=== PATIENT | female | born 1945 | race Caucasian/White ===

== ENCOUNTER 2017-08-23 07:08 | Emergency (ER) | payer MEDICARE, OTHER ==
[~2017-08-23] VITALS: Ht 160 cm; Wt 76.0 kg
[~2017-08-23 07:08] MED LIST: ATOR10 PO; CALC500 PO; CIPR500T4 PO; CYCL5TAB PO; MOBI15TA OR; NEUR100C PO; PREM0.622 PO
[2017-08-23 07:21] VITALS: BP 151/77; PULSE 118; RESP 18; TEMP 99.2; O2SAT 95
[2017-08-23] MEDS ORDERED: DULO1CAP2 PO (07:35)
[2017-08-23] MEDS ORDERED: MOBI15TA PO (07:35)
[2017-08-23] MEDS ORDERED: CYCL10TA PO (07:35)
--- NOTE | 2017-08-23 07:57 | PD ---
HPI Chief Complaint: Cold / Flu Symptoms Time Seen by Provider: 07:52 Travel History International Travel<30 days: No Contact w/Intl Traveler<30days: No Traveled to known affect area: No History of Present Illness HPI 72-year-old female patient presents to the ER today for 1 day history of nausea , vomiting, cough, cold symptoms, body aches, chills. She states that her significant other also has similar symptoms for several days. She denies any diarrhea, abdominal pain, chest pains, shortness of breath, or other symptoms. Modifying Factors: None Associated Signs & Symptoms: Nausea, vomiting, flulike symptoms Risk Factors: Sick contact PFSH Past Medical History Arthritis: Yes Asthma: No Autoimmune Disease: No Blood Disorders: No Anxiety: Yes Depression: No Heart Rhythm Problems: No Cancer: No Cardiovascular Problems: No High Cholesterol: Yes Chemotherapy: No Chest Pain: No Congestive Heart Failure: No COPD: No Cerebrovascular Accident: No Diabetes: No Diminished Hearing: Yes (right ear deaf, left ear wears hearing aid) Endocrine: No GERD: No Glaucoma: No Genitourinary: No Headaches: No Hepatitis: No Hiatal Hernia: No Hypertension: No Immune Disorder: No Kidney Stones: No Musculoskeletal: No Neurologic: No Psychiatric: No Reproductive: No Respiratory: No Migraines: No Myocardial Infarction: No Radiation Therapy: No Renal Failure: No Seizures: No Sickle Cell Disease: No Sleep Apnea: No Thyroid Disease: No Ulcer: No Tetanus Vaccination: < 5 Years Influenza Vaccination: No ?: Not Menopausal: Yes Past Surgical History Abdominal Surgery: No AICD: No Appendectomy: Yes Arteriovenous Shunt: No Cardiac Surgery: No Cholecystectomy: No Ear Surgery: No Endocrine Surgery: No Eye Surgery: No Genitourinary Surgery: No Gynecologic Surgery: No Hysterectomy: Yes Insulin Pump: No Joint Replacement: No Oral Surgery: No Pacemaker: No Thoracic Surgery: No Tonsillectomy: Yes Other Surgery: Yes (HEMMROIDECTOMY) Social History Alcohol Use: Yes (occas. wine) Tobacco Use: No (quit in 1979 smoked cigs 1 ppd) Substance Use: No Allergies-Medications (Allergen,Severity, Reaction): Coded Allergies: iodine (Unverified Allergy, Intermediate, Nausea/Vomiting, 08/23/17) potassium iodide (Unverified Allergy, Intermediate, Nausea/Vomiting, 08/23) povidone-iodine (Unverified Allergy, Intermediate, Nausea/Vomiting, ) sodium iodide (Unverified Allergy, Intermediate, Nausea/Vomiting, 08/23/17 ) sodium iodide (Unverified Allergy, Intermediate, Nausea/Vomiting, 08/23/17 ) levofloxacin (Verified Allergy, Unknown, 08/23/17) patient states does not have allergy to this med states dont want it codeine (Unverified Adverse Reaction, Severe, N&V, 08/23/17) Reported Meds & Prescriptions Reported Meds & Active Scripts Active Reported Mobic (Meloxicam) 15 Mg Tab 15 Mg PO DAILY Duloxetine DR (Duloxetine HCl) 30 Mg Capdr 30 Mg PO BID Flexeril (Cyclobenzaprine HCl) 10 Mg Tab 10 Mg PO Q8HR Review of Systems Except as stated in HPI: all other systems reviewed are Neg Physical Exam Narrative GENERAL: Well-developed elderly white female patient currently in mild distress. Awake and oriented 3. SKIN: Focused skin assessment warm/dry. HEAD: Atraumatic. Normocephalic. EYES: Pupils equal and round. No scleral icterus. No injection or drainage. ENT: Mucosa pink and moist. Mild erythema with no exudates. No uvular edema. No uvular, palatal, or tonsillar deviation. Airway patent. NECK: Trachea midline. No JVD. Supple. CARDIOVASCULAR: Regular rate and rhythm. No murmur appreciated. RESPIRATORY: No accessory muscle use. Clear to auscultation. Breath sounds equal bilaterally. GASTROINTESTINAL: Abdomen soft, non-tender, nondistended. Hepatic and splenic margins not palpable. MUSCULOSKELETAL: No obvious deformities. No clubbing. No cyanosis. No edema. NEUROLOGICAL: Awake and alert. No obvious cranial nerve deficits. Motor grossly within normal limits. Normal speech. PSYCHIATRIC: Appropriate mood and affect; insight and judgment normal. Data Data Last Documented VS Vital Signs Date Time Temp Pulse Resp B/P (MAP) Pulse Ox O2 Delivery O2 Flow Rate FiO2 08/23/17 08:54 101 20 152/69 (96) 93 08/23/17 08:38 Room Air 08/23/17 07:21 99.2 Orders Orders Influenzae A/B Antigen (08/23/17 07:47) Electrocardiogram (08/23/17 07:52) Complete Blood Count With Diff (08/23/17 07:52) Comprehensive Metabolic Panel (08/23/17 07:52) Lipase (08/23/17 07:52) Urinalysis - C+S If Indicated (08/23/17 07:52) Chest, Single Ap (08/23/17 07:52) Sodium Chlorid 0.9% 500 Ml Inj (Ns 500 M (08/23/17 08:00) Ondansetron Inj (Zofran Inj) (08/23/17 08:00) Urine Culture (08/23/17 09:15) Ed Discharge Order (08/23/17 09:35) Labs Laboratory Tests Test 08/23/17 08:00 08/23/17 09:15 White Blood Count 5.7 TH/MM3 Red Blood Count 4.19 MIL/MM3 Hemoglobin 12.8 GM/DL Hematocrit 37.6 % Mean Corpuscular Volume 89.7 FL Mean Corpuscular Hemoglobin 30.6 PG Mean Corpuscular Hemoglobin Concent 34.2 % Red Cell Distribution Width 11.9 % Platelet Count 237 TH/MM3 Mean Platelet Volume 6.6 FL Neutrophils (%) (Auto) 79.7 % Lymphocytes (%) (Auto) 7.3 % Monocytes (%) (Auto) 8.7 % Eosinophils (%) (Auto) 0.6 % Basophils (%) (Auto) 3.7 % Neutrophils # (Auto) 4.6 TH/MM3 Lymphocytes # (Auto) 0.4 TH/MM3 Monocytes # (Auto) 0.5 TH/MM3 Eosinophils # (Auto) 0.0 TH/MM3 Basophils # (Auto) 0.2 TH/MM3 CBC Comment DIFF FINAL Differential Comment Blood Urea Nitrogen 11 MG/DL Creatinine 0.92 MG/DL Random Glucose 139 MG/DL Total Protein 7.1 GM/DL Albumin 3.5 GM/DL Calcium Level 8.6 MG/DL Alkaline Phosphatase 89 U/L Aspartate Amino Transf (AST/SGOT) 41 U/L Alanine Aminotransferase (ALT/SGPT) 31 U/L Total Bilirubin 0.4 MG/DL Sodium Level 141 MEQ/L Potassium Level 3.8 MEQ/L Chloride Level 105 MEQ/L Carbon Dioxide Level 27.2 MEQ/L Anion Gap 9 MEQ/L Estimat Glomerular Filtration Rate 60 ML/MIN Lipase 135 U/L Urine Color YELLOW Urine Turbidity CLOUDY Urine pH 6.0 Urine Specific [place] 1.014 Urine Protein NEG mg/dL Urine Glucose (UA) NEG mg/dL Urine Ketones NEG mg/dL Urine Occult Blood MOD Urine Nitrite POS Urine Bilirubin NEG Urine Leukocyte Esterase SMALL Urine RBC 0-2 /hpf Urine WBC 9-14 /hpf Urine WBC Clumps FEW Urine Squamous Epithelial Cells 0-5 /hpf Urine Bacteria MANY /hpf Microscopic Urinalysis Comment CULTURE INDICATED MDM Medical Decision Making Medical Screen Exam Complete: Yes Emergency Medical Condition: Yes Medical Record Reviewed: Yes Interpretation(s) EKG shows sinus tachycardia at a rate of 108 bpm. No signs of acute ST-T changes. Laboratory Tests Test 08/23/17 08:00 08/23/17 09:15 Mean Platelet Volume 6.6 FL (7.0-11.0) Neutrophils (%) (Auto) 79.7 % (16.0-70.0) Lymphocytes (%) (Auto) 7.3 % (9.0-44.0) Monocytes (%) (Auto) 8.7 % (0.0-8.0) Basophils (%) (Auto) 3.7 % (0.0-2.0) Lymphocytes # (Auto) 0.4 TH/MM3 (1.0-4.8) Random Glucose 139 MG/DL (74-106) Aspartate Amino Transf (AST/SGOT) 41 U/L (15-37) Estimat Glomerular Filtration Rate 60 ML/MIN (>89) Urine Turbidity CLOUDY (CLEAR) Urine Occult Blood MOD (NEG) Urine Nitrite POS (NEG) Urine Leukocyte Esterase SMALL (NEG) Urine WBC 9-14 /hpf (0-5) Urine WBC Clumps FEW (NONE) Urine Bacteria MANY /hpf (NONE) Last 24 hours Impressions Chest X-Ray 08/23/17 0752 Signed Impressions: Service Date/Time: Wednesday, August 23, 2017 08:17 - CONCLUSION: No acute disease. Indra Cerda MD Differential Diagnosis Flulike symptoms, nausea, vomiting: Influenza versus viral syndrome versus dehydration versus metabolic issues versus pneumonia versus sepsis Narrative Course Patient's apparently was confirmed to have the flu last week. At this point, even though the flu testing is negative and the ER, I would plan on giving the patient Tamiflu as treatment considering her symptoms. She may be somewhat dehydrated, is mild tachycardic in the ER on initial evaluation. IV fluids were given and her heart rate is settling down. Her blood pressure was elevated at some points in the ER but she is not having any significant chest pains or shortness of breath. EKG did not show any signs of significant changes. Chest x-ray did not show any signs of pneumonia or any other issues. Patient has been taking [id number] flu remedies including DayQuil and NyQuil and some of these have decongestants which could be exacerbating blood pressures. I have recommended that they stop taking those medications that contain any pseudoephedrine. My plan would be to give her Tamiflu, symptomatic relief with Zofran, and in addition, she has UTI on lab work and I will treat her UTI as well. Return for any worsening in symptoms as necessary. The plan has been discussed with her and she states understanding. Diagnosis Primary Impression: Viral syndrome Additional Impression: UTI (urinary tract infection) Med/Other Pt SpecificInfo: Prescription(s) given Scripts Ondansetron Odt (Zofran Odt) 4 Mg Tab 4 MG SL Q6HR Y for Nausea/Vomiting, #7 TAB 0 Refills Prov: Zachary Franks MD 08/23/17 Oseltamivir (Tamiflu) 75 Mg Cap 75 MG PO BID for Mgmt Viral Infection for 5 Days, #10 CAP 0 Refills Prov: Zachary Franks MD 08/23/17 Sulfamethoxazole-Trimethoprim (Bactrim DS) 800-160 Mg Tab 1 TAB PO BID for Infection, #14 TAB 0 Refills Prov: Zachary Franks MD 08/23/17 Disposition: 01 DISCHARGE HOME Condition: Stable Zachary Franks MD Aug 23, 2017 07:57
[2017-08-23] MEDS ORDERED: ONDANSETRON HCL 4 MG/2 ML VIAL IV PUSH ONE (08:00)
[2017-08-23] MEDS ORDERED: SODIUM CHLORID 0.9% 500 ML INJ 500 ML IV ONE (08:00)
[2017-08-23 08:07] LABS: AUTOMATED NEUTROPHIL # 4.6 TH/MM3 (1.8-7.7); BASOPHIL # 0.2 TH/MM3 (0-0.2); BASOPHIL % 3.7 % (0.0-2.0); EOSINOPHIL % 0.6 % (0.0-4.0); HEMATOCRIT 37.6 % (35.0-46.0); HEMOGLOBIN 12.8 GM/DL (11.6-15.3); LYMPH % 7.3 % (9.0-44.0); LYMPHOCYTE # 0.4 TH/MM3 (1.0-4.8); MEAN CELL VOLUME 89.7 FL (80.0-100.0); MEAN CORPUSCULAR HEMOGLOBIN 30.6 PG (27.0-34.0); MEAN CORPUSCULAR HGB CONC 34.2 % (32.0-36.0); MEAN PLATELET VOLUME 6.6 FL (7.0-11.0); MONO % 8.7 % (0.0-8.0); MONOCYTE # 0.5 TH/MM3 (0-0.9); NEUT % 79.7 % (16.0-70.0); PLATELET COUNT 237 TH/MM3 (150-450); RED BLOOD COUNT 4.19 MIL/MM3 (4.00-5.30); RED CELL DISTRIBUTION WIDTH 11.9 % (11.6-17.2); WHITE BLOOD COUNT 5.7 TH/MM3 (4.0-11.0)
[2017-08-23 08:18] LABS: CHLORIDE 105 MEQ/L (98-107); SODIUM (NA) 141 MEQ/L (136-145)
[2017-08-23 08:21] LABS: ALBUMIN 3.5 GM/DL (3.4-5.0); BICARBONATE 27.2 MEQ/L (21.0-32.0); BLOOD UREA NITROGEN 11 MG/DL (7-18); CALCIUM 8.6 MG/DL (8.5-10.1); GLUCOSE,RANDOM 139 MG/DL (74-106); LIPASE 135 U/L (73-393)
[2017-08-23 08:24] LABS: ALT (GPT) 31 U/L (10-53); AST (GOT) 41 U/L (15-37); CREATININE 0.92 MG/DL (0.50-1.00); GLOMERULAR FILTRATION RATE 60 ML/MIN (>89)
[2017-08-23 08:26] LABS: TOTAL BILIRUBIN ADULT 0.4 MG/DL (0.2-1.0); TOTAL PROTEIN 7.1 GM/DL (6.4-8.2)
[2017-08-23 08:27] LABS: ALKALINE PHOSPHATASE 89 U/L (45-117)
--- NOTE | 2017-08-23 08:30 | RADRPT ---
EXAM DATE/TIME: 08/23/2017 08:17 [facility] COMPARISON: No previous studies available for comparison. INDICATIONS : "Flu" symptoms for 2 days, cough , fever and body aches. MEDICAL HISTORY : None. SURGICAL HISTORY : None. ENCOUNTER: Initial ACUITY: 2 days PAIN SCORE: 9/10 LOCATION: all over FINDINGS: A single view of the chest demonstrates the lungs to be symmetrically aerated without evidence of mas s, infiltrate or effusion. The cardiomediastinal contours are unremarkable. Osseous structures are intact. CONCLUSION: No acute disease. Indra Cerda MD on August 23, 2017 at 8:28 Board Certified Radiologist. This report was verified electronically.
[2017-08-23 08:38] VITALS: BP 136/73; PULSE 103; RESP 16; O2SAT 94
[2017-08-23 08:54] VITALS: BP 152/69; PULSE 101; RESP 20; O2SAT 93
[2017-08-23 09:21] LABS: BILIRUBIN, URINE NEG (NEG); BLOOD, URINE MOD (NEG); GLUCOSE,URINE NEG (NEG); KETONE, URINE NEG (NEG); NITRITE,URINE POS (NEG); URINE LEUKOCYTE ESTERASE SMALL (NEG)
[2017-08-23 09:24] LABS: URINE COLOR YELLOW (YELLW/STRAW)
[2017-08-23 09:25] LABS: BACTERIA, URINE MANY /hpf; RBC, URINE 0-2 /hpf (0-3); SQUAMOUS EPITHELIAL CELL URINE 0-5 /hpf (0-5); WHITE BLOOD CELL CLUMPS FEW
[2017-08-23] MEDS ORDERED: BACT800T5 PO (09:38)
[2017-08-23] MEDS ORDERED: OSEL75 PO (09:38)
[2017-08-23] MEDS ORDERED: ZOFR4TAB3 SL (09:40)
--- NOTE | 2017-08-23 17:14 | EKG ---
Date Performed: 08/23/2017 Time Performed: 08:11:37 PTAGE: 72 years EKG: SINUS TACHYCARDIA POSSIBLE INFERIOR MYOCARDIAL INFARCTION ABNORMAL RHYTHM ECG Compared to PREVIOUS TRACING , the patient is now tachycardic. PREVIOUS TRACIN04/04/2008 14.58 DOCTOR: Tila Dunbar Interpretating Date/Time 08/23/2017 17:12:58
== END 2017-08-23 09:49 | disposition home or self-care (01) ==
LOC: PHED 07:08
DX: B34.9 Viral infection, unspecified (principal); N39.0 Urinary tract infection, site not specified; B96.1 Klebsiella pneumoniae [K. pneumoniae] as the cause of diseases classified elsewhere; R00.0 Tachycardia, unspecified; M19.90 Unspecified osteoarthritis, unspecified site; F41.9 Anxiety disorder, unspecified; E78.00 Pure hypercholesterolemia, unspecified; R94.31 Abnormal electrocardiogram [ECG] [EKG]; Z87.891 Personal history of nicotine dependence
CPT/HCPCS: 71010; 80053; 81001; 83690; 85025; 87077; 87086; 87186; 87804; 93005; 96361; 96374; 99285; J2405; J7040